=== PATIENT | female | born 1970 | race Caucasian/White ===

== ENCOUNTER 2016-11-07 17:49 | Emergency (ER) | payer OTHER ==
[2016-11-07 17:15] LABS: BASOPHILS 0.2 %; BASOPHILS ABSOLUTE 0.02 10/3/uL (0.0-0.16); EOSINOPHILS 1.4 %; EOSINOPHILS ABSOLUTE 0.15 10/3/uL (0.0-0.53); ER CBC TAT 0 Hrs 05 Mins; HEMATOCRIT 41.6 % (36.0-48.0); HEMOGLOBIN 13.7 g/dL (12.0-16.0); IMMATURE GRANULOCYTES 1.1 %; IMMATURE GRANULOCYTES ABSOLUTE 0.11 10/3/uL (0.0-0.11); LYMPHOCYTES 23.9 %; LYMPHOCYTES ABSOLUTE 2.49 10/3/uL (0.67-4.30); MEAN CORPUS HGB CONC 32.9 g/dL (32.0-36.0); MEAN CORPUSCULAR HEMOGLOB 29.3 pg (26.0-34.0); MEAN CORPUSCULAR VOLUME 89.1 fL (80-100); MEAN PLATELET VOLUME 11.2 fL (9.2-13.0); MONOCYTES 6.8 %; MONOCYTES ABSOLUTE 0.71 10/3/uL (0.21-1.20); NEUTROPHILS 66.6 %; NEUTROPHILS ABSOLUTE 6.96 10/3/uL (2.02-8.40); PLATELET COUNT 185 10/3/uL (150-400); RBC DISTRIBUTION WIDTH 14.2 % (12.0-16.0); RED CELL COUNT 4.67 10/6/uL (4.0-5.6); WHITE BLOOD CELLS 10.4 10/3/uL (4.5-10.5)
[2016-11-07 17:18] LABS: MANUAL DIFF NO %
[2016-11-07 17:31] LABS: A/G RATIO 0.8 (0.7-1.9); ALBUMIN 3.1 G/DL (3.5-5.0); ALKALINE PHOSPHATASE 77 U/L (45-117); BUN (BLOOD UREA NITROGEN) 14 MG/DL (6-23); CHLORIDE, SERUM 104 MMOL/L (96-112); CO2 (CARBON DIOXIDE) 27 MMOL/L (24-34); CREATININE 0.68 MG/DL (0.55-1.02); GFR AFRICAN AMERICAN 121 ML/MIN (>=60); GFR NON AFRICAN AMERICAN 104 ML/MIN (>=60); GLOBULIN 3.9 G/DL (2.5-4.1); GLUCOSE, SERUM 85 MG/DL (60-99); POTASSIUM, SERUM 3.9 MMOL/L (3.5-5.3); SGOT(AST) 23 U/L (5-40); SGPT(ALT) 32 U/L (5-65); SODIUM, SERUM 139 MMOL/L (135-148); TOTAL BILIRUBIN 0.5 MG/DL (0-1.2)
[2016-11-07 18:17] LABS: INTERNATIONAL NORMAL RATI 1.1 UNITS (-); PARTIAL THROMBO TIME 29.2 SEC (22.5-37.2); PROTIME (NOT ORD) 14.3 SEC (12.0-14.5)
[2016-12-10] MEDS ORDERED: NORCO1 TA2 PO (13:11)
[2016-12-10] MEDS ORDERED: NYS500UDL PO (13:12)
[2016-12-11] MEDS ORDERED: METHATAB40 PO (07:21)
== END 2016-11-07 23:51 | disposition home or self-care (01) ==
LOC: ER 17:49
PROVIDERS: Emergency Medicine; Physician Assistant
DX: K94.21 Gastrostomy hemorrhage (principal); Z85.89 Personal history of malignant neoplasm of other organs and systems
CPT/HCPCS: 43761; 76000; 80053; 85025; 85610; 85730; 99283

== ENCOUNTER 2016-11-09 09:48 | Inpatient (IN) | payer OTHER ==
--- NOTE | ~2016-11-09 | CN ---
Consultation Report [facility] [address] [place]. [address] NAME: BRYN VALDEZ : 66 STATUS : ADM IN PAT#: [id number] AGE: 46 ADM/REG DATE : 11/10/16 MR#: [id number] REPORT SERV DATE: 11/13/16 DICTATED BY: ANUJA GONZALEZ DATE: 11/12/16 REPORT STATUS : Draft TRANSCRIBED BY: MODRuthie DATE: 11/12/16 DATE OF CONSULTATION: HISTORY OF PRESENT ILLNESS: Ms. Valdez is a 46-year-old white female, who recently presented with progressive throat pain, dysphagia, hoarseness, and then what later became airway obstruction. She underwent an emergency tracheostomy by Dr. García in [place]. At that time, the supraglottic larynx was replaced by a large tumor mass. Biopsy was performed, which revealed moderately to well-differentiated squamous cell carcinoma. At that time. The patient also had a PEG tube placed and a port. A PET scan was performed on 11/03/2016, which revealed a 2.5 x 2 x 3 cm mass in the right supraglottic larynx that extended from the base of the epiglottis along the piriform sinus to the level of the false vocal cord. The lesion also extended into parapharyngeal soft tissues. The only lymph node was a 5 mm level-2 lymph node with a mild SUV level of 3.4. Ms. Valdez has been referred for definitive chemo and radiation. She is seeing Dr. Monteiro in consultation. She is referred to Radiation Oncology with hopes of being underway with treatment by 11/18/2016. MEDICATIONS: Reviewed and recorded. ALLERGIES: NO KNOWN DRUG ALLERGIES. PAST MEDICAL/SURGICAL HISTORY: Significant for COPD, GERD, hypertension, degenerative arthritis, chronic pain syndrome, chronic tobacco abuse, obesity, and EKG changes. She is status post two C-sections and bunion surgery. She has no prior history of radiation therapy or chemotherapy. FAMILY HISTORY: Unremarkable for an aunt with "bone cancer." The primary site is not known. SOCIAL HISTORY: The patient is currently , though her is very attentive. The patient smoked two packs a day up until the time of her tracheostomy. She does not abuse alcohol. REVIEW OF SYSTEMS: A comprehensive review of systems is performed, which is negative except as mentioned in the new patient questionnaire. PHYSICAL FINDINGS: GENERAL: Reveals an obese, middle-aged white female with a tracheostomy tube in place. VITAL SIGNS: Weight 290, height 5 feet 4 inches, temp 98.5, heart rate 79, respiratory rate 20, and O2 saturation 93%. ENT: Examination of oral cavity and oropharynx reveals the patient to be edentulous. NECK: There is no cervical or supraclavicular lymphadenopathy. CHEST: The left-sided Port-A-Cath is noted. ABDOMEN: The feeding jejunostomy tube is noted. There is excessive drainage around the tube. EXTREMITIES: Without cyanosis or clubbing. Her digits are nicotine-stained. Consultation Report [place] [id number] [facility] [place]. [address] NAME: BRYN VALDEZ : 66 STATUS : ADM IN [facility]#: [id number] AGE: 46 ADM/REG DATE : 11/10/16 MR#: [id number] REPORT SERV DATE: 11/13/16 DICTATED BY: ANUJA GONZALEZ DATE: 11/12/16 REPORT STATUS : Draft TRANSCRIBED BY: SHARON DATE: 11/12/16 PSYCHIATRIC: Alert and oriented x3. NEUROLOGIC: Grossly intact. PROCEDURE NOTE: The rigid Lamar john were introduced into the posterior oropharynx. The larynx is replaced by a large exophytic tumor, which overshadows the airway. Vocal cords could not be seen. The tumor extends from the base of tongue anteriorly to the anterior portion of the larynx anteriorly. The bulk of the tumor is on the right. X-RAYS: Recent PET scan was personally reviewed by me. 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 RECOMMENDATIONS: I have requested that the p16 status be performed on the biopsy material from the larynx. This might be an HPV-positive base of tongue cancer, which would change the cervical lymphatics at risk for metastases. For the time being, we will consider this a supraglottic cancer and I recommended 7000 cGy in 35 fractions using IMRT and daily image guidance. Chemotherapy will consist of weekly carboplatin and Taxol under Dr. Monteiro's care. Ms. Valdez will return tomorrow for CT simulation with IV contrast. I should be ready to begin treatment on 11/18/2016 to coincide with her first dose of chemotherapy. INFORMED CONSENT: The benefits, rationale, and possible complications of proposed treatment were discussed with the patient. The most likely side effects of generalized fatigue and erythematous skin changes along with mucositis were mentioned as well as the worst side effect of a radiation myelitis or laryngeal necrosis. Ms. Valdez consents to treatment as described. GEENA/MODL Anuja Gonzalez M.D. / [id number] CC: Tito Garcia SALLY ANN Mark S Womack IV, M.D. ALBERT CLA[place], MD ESTON WENGER, MD
--- NOTE | ~2016-11-09 | HP ---
History And Physical [place] [id number] [facility] [place]. [address] NAME: BRYN WEN : 66 STATUS : ADM IN [facility]#: [id number] AGE: 45 ADM/REG DATE : 11/10/16 MR#: [id number] REPORT SERV DATE: 11/10/16 DICTATED BY: ANGELO COOPER DATE: 11/10/16 REPORT STATUS : Draft TRANSCRIBED BY: MODL DATE: 11/10/16 DATE OF ADMISSION: 11/10/2016 CHIEF COMPLAINT: Malfunctioning PEG tube. HISTORY OF PRESENT ILLNESS: The patient is a 45-year-old white female who has presented to Dr. Gonzalez' office for outpatient radiation therapy and evaluation. Apparently, she had a malfunctioning PEG tube with leakage of gastric contents around the tube and irritation around the stoma going on for several weeks. In late October is when she received her PEG tube up in [place], [place] and after that she had more complication of the leakage of the tube, so she went to the emergency room where Interventional Radiology changed the tube out, and since then, it was doing well. She went to visit the surgeon again and they tightened the tube and then it started leaking around the stoma again. When she came today, her radiation could not be started because she needed to be on appropriate nutrition and her tube was malfunctioning, so Dr. Gonzalez decided that she needed to be admitted for further evaluation by Surgery and then proceed with radiation once a way of nutrition is established. When I talked to the patient, this patient denied any chest pain, shortness of breath. She has had some nausea, but no vomiting. She has a constant burning pain around the site of the PEG tube. There is leakage around the PEG tube. She has not lost much weight. She has had normal bowel function. The rest of the 10-point review of systems were negative. PAST MEDICAL HISTORY: Significant and extensive for obstructive sleep apnea, obesity, gastroesophageal reflux, spinal stenosis, chronic pain syndrome, chronic obstructive pulmonary disease, and dysphagia. PAST SURGICAL HISTORY: Significant for direct laryngoscopy with tracheostomy, x2, history of tonsillectomy, radical bunionectomy, and the PEG tube placement as noted above. ALLERGIES: NO KNOWN DRUG ALLERGIES. HOME MEDICATIONS: Hydrocodone, dexamethasone, Lasix, guaifenesin, methadone, potassium, Phenergan, Tussionex. SOCIAL HISTORY: This patient admits to smoking, quit about four weeks ago, smoked almost one and a half to two packs per day for 30+ years. No use of alcohol or illicit substances. FAMILY HISTORY: Significant for skin cancer in the aunt, but otherwise, no history of cancer in the family. Mother of heart failure. Father of an unknown cause. PHYSICAL EXAMINATION: GENERAL: Obese white female, lying on a gurney, appears to be in no obvious respiratory distress. She is awake, alert. She is oriented. VITAL SIGNS: Will be reviewed when available from nursing staff. HEENT: Head is normocephalic, atraumatic. Pupils are equal, round, and reactive to light. Extraocular muscles are intact. Sclerae anicteric. Conjunctivae normal. Oropharynx History And Physical [address] [address] NAME: BRYN WEN : 66 STATUS : ADM IN [facility]#: [id number] AGE: 45 ADM/REG DATE : 11/10/16 MR#: [id number] REPORT SERV DATE: 11/10/16 DICTATED BY: ANGELO COPOER DATE: 11/10/16 REPORT STATUS : Draft TRANSCRIBED BY: MODRuthie DATE: 11/10/16 without lesion. Tongue protrudes in midline. Uvula midline. NECK: Supple. No jugular venous distention. No carotid bruits or thyromegaly is appreciated. Tracheostomy is in place. There is some mucus production through the tracheostomy. HEART: Regular rate and rhythm. No murmurs, rubs, or gallops are heard. PMI is nondisplaced. LUNGS: Clear to auscultation anteriorly and posteriorly. ABDOMEN: Obese, soft, nontender, good bowel sounds. There is a PEG tube in place with a leakage of what appears to be gastric contents. There is significant erythema around the site with excoriations and some reaction to the tape. EXTREMITIES: Without cyanosis or clubbing. There is 2+ to 3+ pitting edema bilaterally, which patient has suffered over the last few years. NEUROLOGIC: Cranial nerves 2 through 12 are normal. Strength is equal and symmetrical. Deep tendon reflexes are present. LABS: Most recent echo report, normal left ventricular cavity size with mild concentric left ventricular hypertrophy, ejection fraction is about 60%. Stage I diastolic dysfunction. Aortic valve not well visualized. No hemodynamic significant aortic stenosis. By Doppler interrogation, there is trivial to mild aortic valve regurgitation. Pericardium appears normal with no significant pericardial effusions. PET-CT, right supraglottic larynx, 2.5 x 2 x 3 cm mass that extends from the base of the epiglottis along the piriformis sinus to the level of the false cords. The lesion extends into the parapharyngeal left soft tissues. There is a 5 mm level 2 lymph node in the right neck adjacent to the piriformis sinus that is suspicious for metastatic disease. No enlarged or necrotic lymph nodes are present. A Gastrografin check of the PEG tube on 11/07/2016 showed PEG tube in good place. No other lab work is available. IMPRESSION: 1. Malfunctioning G-tube. 2. Advanced laryngeal cancer. 3. Chronic obstructive pulmonary disease. 4. Obstructive sleep apnea. 5. Spinal stenosis. 6. Chronic pain syndrome. 7. Dysphagia due to advanced laryngeal cancer. 8. Peripheral edema. PLAN: The patient will be admitted. IV fluids will be given. IV Ancef will be started. Wound care will be asked to see the patient for wound care around the PEG site. General surgery consultation by Dr. Ren Olmstead will be obtained to see if there was a surgical need to replace the PEG tube or if it could be changed through other less invasive means. Home medications will be addressed when available from pharmacy. The patient remains a full code. SV/MODL History And Physical [address] [address] NAME: BRYN WEN : 66 STATUS : ADM IN [facility]#: [id number] AGE: 45 ADM/REG DATE : 11/10/16 MR#: [id number] REPORT SERV DATE: 11/10/16 DICTATED BY: ANGELO COOPER DATE: 11/10/16 REPORT STATUS : Draft TRANSCRIBED BY: SHARON DATE: 11/10/16 Angelo Cooper M.D. / [id number] CC: Tito Yepez SALLY ANN Mark S Womack IV, M.D.
--- NOTE | ~2016-11-09 | DS ---
Discharge Summary [facility] [address] [place]. [address] NAME: BRYN WEN : 66 STATUS : DIS IN PAT#: [id number] AGE: 46 ADM/REG DATE : 11/10/16 MR#: [id number] REPORT SERV DATE: 11/13/16 DICTATED BY: ANGELO COOPER DATE: 11/13/16 REPORT STATUS : Draft TRANSCRIBED BY: MODL DATE: 11/13/16 ADMISSION DATE: 11/10/2016 DISCHARGE DATE: 11/13/2016 DISCHARGE DIAGNOSES: 1. Malfunctioning of the PEG tube. 2. Mild cellulitis of the PEG tube stoma. 3. Constipation, now resolved. 4. Laryngeal cancer. 5. Spinal stenosis. 6. Chronic pain syndrome. 7. Chronic obstructive pulmonary disease. 8. Gastroesophageal reflux. CONSULTANTS DURING THIS HOSPITALIZATION: Dr. Ren Olmstead of General Surgery. INVASIVE PROCEDURES DONE DURING THIS HOSPITALIZATION: None. BRIEF HISTORY OF PRESENT ILLNESS: The patient is a 46-year-old female with an unfortunate diagnosis of laryngeal cancer presented with a malfunctioning G-tube, so she was admitted. For detailed history and physical exam, please see my note dictated on 11/10/2016. HOSPITAL COURSE: After being admitted to the hospital, this patient was kept initially n.p.o. General Surgery, Dr. Ren Olmstead saw the patient in consultation. He thought that the tube was in good place and there was no need to change the tube, and we just needed to manipulate the tube to a point where the stoma would not leak. This was done through Radiology, first placement was ensured and then Dr. Olmstead actually put a binding suture around the tube to keep it in place. Tube feeds were started and on a continuous tube feed, she had no leakage. Then, we tried bolus feed, and on a bolus feed, there was no leakage as well. The patient was doing well. She felt well enough that she could be discharged home and follow up in the outpatient setting. DISCHARGE DISPOSITION: Home. DISCHARGE ACTIVITY: As tolerated. DISCHARGE DIET: Low sodium diet. DISCHARGE MEDICATIONS: Hydrochlorothiazide 12.5 mg once daily, nicotine patch as directed, Prilosec 20 mg once daily, cetirizine 10 mg once daily, Phenergan 25 mg twice daily, Tussionex 5 mL p.o. twice daily. DISCHARGE FOLLOWUP: With Dr. Poncho Gonzalez for radiation therapy with Dr. Estefani Mooney as directed and with Dr. Isaiah Monteiro IV as scheduled previously. More than 30 minutes spent planning this patient's discharge, reconciling medications, Discharge Summary [address] [address] NAME: BRYN WEN : 66 STATUS : DIS IN PAT#: [id number] AGE: 46 ADM/REG DATE : 11/10/16 MR#: [id number] REPORT SERV DATE: 11/13/16 DICTATED BY: ANGELO COOPER DATE: 11/13/16 REPORT STATUS : Draft TRANSCRIBED BY: MODL DATE: 11/13/16 discussing hospital care and followup with the patient, and documenting this discharge. DICTATED BY: Tito Garcia/SHARON Angelo Cooper M.D. / [id number] CC: Tito Garcia SALLY ANN Eric Ellis, M.D. Mark S Womack IV, M.D.
[2016-11-10 17:12] LABS: BASOPHILS 0.3 %; BASOPHILS ABSOLUTE 0.02 10/3/uL (0.0-0.16); EOSINOPHILS ABSOLUTE 0.12 10/3/uL (0.0-0.53); HEMATOCRIT 42.5 % (36.0-48.0); IMMATURE GRANULOCYTES 0.7 %; IMMATURE GRANULOCYTES ABSOLUTE 0.04 10/3/uL (0.0-0.11); LYMPHOCYTES 32.4 %; LYMPHOCYTES ABSOLUTE 1.94 10/3/uL (0.67-4.30); MEAN CORPUS HGB CONC 32.9 g/dL (32.0-36.0); MEAN CORPUSCULAR HEMOGLOB 29.2 pg (26.0-34.0); MEAN CORPUSCULAR VOLUME 88.7 fL (80-100); MEAN PLATELET VOLUME 11.1 fL (9.2-13.0); MONOCYTES ABSOLUTE 0.54 10/3/uL (0.21-1.20); NEUTROPHILS 55.6 %; NEUTROPHILS ABSOLUTE 3.32 10/3/uL (2.02-8.40); PLATELET COUNT 174 10/3/uL (150-400); RBC DISTRIBUTION WIDTH 13.8 % (12.0-16.0); RED CELL COUNT 4.79 10/6/uL (4.0-5.6)
[2016-11-10 17:13] LABS: MANUAL DIFF NO %
[2016-11-10 17:18] LABS: INTERNATIONAL NORMAL RATI 1.3 UNITS (-); PARTIAL THROMBO TIME 33.1 SEC (22.5-37.2); PROTIME (NOT ORD) 15.8 SEC (12.0-14.5)
[2016-11-10 17:28] LABS: A/G RATIO 0.8 (0.7-1.9); ALBUMIN 2.9 G/DL (3.5-5.0); ALKALINE PHOSPHATASE 77 U/L (45-117); CALCIUM, SERUM 9.2 MG/DL (8.5-10.4); CHLORIDE, SERUM 101 MMOL/L (96-112); GFR AFRICAN AMERICAN 120 ML/MIN (>=60); GFR NON AFRICAN AMERICAN 103 ML/MIN (>=60); GLOBULIN 3.8 G/DL (2.5-4.1); GLUCOSE, SERUM 81 MG/DL (60-99); POTASSIUM, SERUM 3.5 MMOL/L (3.5-5.3); SGOT(AST) 34 U/L (5-40); SGPT(ALT) 41 U/L (5-65); SODIUM, SERUM 138 MMOL/L (135-148); TOTAL BILIRUBIN 0.7 MG/DL (0-1.2); TOTAL PROTEIN 6.7 G/DL (6.0-8.5)
[2016-11-10 17:29] LABS: BUN (BLOOD UREA NITROGEN) 10 MG/DL (6-23); CO2 (CARBON DIOXIDE) 32 MMOL/L (24-34)
[2016-11-10 19:48] LABS: PROCALCITONIN 0.08 ng/mL (<0.5)
[2016-11-10] MEDS ORDERED: ZYRTEC ALLGY10 MG PO (22:43)
[2016-11-10] MEDS ORDERED: *UNABLE1 (22:44)
[2016-11-11 03:49] LABS: BASOPHILS 0.2 %; BASOPHILS ABSOLUTE 0.01 10/3/uL (0.0-0.16); EOSINOPHILS 2.8 %; EOSINOPHILS ABSOLUTE 0.16 10/3/uL (0.0-0.53); HEMOGLOBIN 12.5 g/dL (12.0-16.0); IMMATURE GRANULOCYTES 0.5 %; IMMATURE GRANULOCYTES ABSOLUTE 0.03 10/3/uL (0.0-0.11); LYMPHOCYTES ABSOLUTE 1.69 10/3/uL (0.67-4.30); MEAN CORPUS HGB CONC 32.8 g/dL (32.0-36.0); MEAN CORPUSCULAR HEMOGLOB 29.3 pg (26.0-34.0); MEAN CORPUSCULAR VOLUME 89.2 fL (80-100); MONOCYTES 10.6 %; NEUTROPHILS 55.9 %; NEUTROPHILS ABSOLUTE 3.15 10/3/uL (2.02-8.40); PLATELET COUNT 172 10/3/uL (150-400); RED CELL COUNT 4.27 10/6/uL (4.0-5.6); WHITE BLOOD CELLS 5.6 10/3/uL (4.5-10.5)
[2016-11-11 03:51] LABS: HEMATOCRIT 38.1 % (36.0-48.0); MANUAL DIFF NO %
[2016-11-11 04:02] LABS: ALBUMIN 2.6 G/DL (3.5-5.0); BUN (BLOOD UREA NITROGEN) 9 MG/DL (6-23); CALCIUM, SERUM 8.7 MG/DL (8.5-10.4); CHLORIDE, SERUM 103 MMOL/L (96-112); CO2 (CARBON DIOXIDE) 32 MMOL/L (24-34); CREATININE 0.67 MG/DL (0.55-1.02); GFR AFRICAN AMERICAN 120 ML/MIN (>=60); GFR NON AFRICAN AMERICAN 104 ML/MIN (>=60); GLUCOSE, SERUM 86 MG/DL (60-99); PHOSPHORUS, SERUM 3.3 MG/DL (2.5-4.5); POTASSIUM, SERUM 3.7 MMOL/L (3.5-5.3); SODIUM, SERUM 138 MMOL/L (135-148)
[2016-11-11] MEDS ORDERED: HYDROCHLOROT12.5 MG PO (09:39)
[2016-11-11] MEDS ORDERED: HABIT14 TOP (09:39)
[2016-11-11] MEDS ORDERED: PRILO PO (09:39)
[2016-11-11] MEDS ORDERED: TUSSINEX PO (09:40)
[2016-11-11] MEDS ORDERED: PR25 PO (09:40)
[2016-11-12 04:46] LABS: BASOPHILS 0 %; EOSINOPHILS 3.7 %; EOSINOPHILS ABSOLUTE 0.13 10/3/uL (0.0-0.53); HEMATOCRIT 36.4 % (36.0-48.0); HEMOGLOBIN 11.9 g/dL (12.0-16.0); IMMATURE GRANULOCYTES 0.6 %; IMMATURE GRANULOCYTES ABSOLUTE 0.02 10/3/uL (0.0-0.11); LYMPHOCYTES 35.7 %; LYMPHOCYTES ABSOLUTE 1.26 10/3/uL (0.67-4.30); MEAN CORPUS HGB CONC 32.7 g/dL (32.0-36.0); MEAN CORPUSCULAR HEMOGLOB 29.4 pg (26.0-34.0); MEAN CORPUSCULAR VOLUME 89.9 fL (80-100); MEAN PLATELET VOLUME 11.3 fL (9.2-13.0); MONOCYTES 9.3 %; MONOCYTES ABSOLUTE 0.33 10/3/uL (0.21-1.20); NEUTROPHILS 50.7 %; NEUTROPHILS ABSOLUTE 1.79 10/3/uL (2.02-8.40); PLATELET COUNT 162 10/3/uL (150-400); RBC DISTRIBUTION WIDTH 14.2 % (12.0-16.0); RED CELL COUNT 4.05 10/6/uL (4.0-5.6); WHITE BLOOD CELLS 3.5 10/3/uL (4.5-10.5)
[2016-11-12 04:47] LABS: MANUAL DIFF NO %
[2016-11-12 05:03] LABS: ALBUMIN 2.5 G/DL (3.5-5.0); BUN (BLOOD UREA NITROGEN) 8 MG/DL (6-23); CALCIUM, SERUM 8.2 MG/DL (8.5-10.4); CHLORIDE, SERUM 104 MMOL/L (96-112); CO2 (CARBON DIOXIDE) 31 MMOL/L (24-34); CREATININE 0.59 MG/DL (0.55-1.02); GFR AFRICAN AMERICAN 126 ML/MIN (>=60); GFR NON AFRICAN AMERICAN 108 ML/MIN (>=60); PHOSPHORUS, SERUM 3.8 MG/DL (2.5-4.5); POTASSIUM, SERUM 3.3 MMOL/L (3.5-5.3); SODIUM, SERUM 139 MMOL/L (135-148)
[2016-11-12 05:07] LABS: GLUCOSE, SERUM 115 MG/DL (60-99)
[2016-11-13 03:57] LABS: BASOPHILS 0.2 %; BASOPHILS ABSOLUTE 0.01 10/3/uL (0.0-0.16); EOSINOPHILS 3.4 %; EOSINOPHILS ABSOLUTE 0.15 10/3/uL (0.0-0.53); HEMOGLOBIN 12.3 g/dL (12.0-16.0); IMMATURE GRANULOCYTES 0.5 %; IMMATURE GRANULOCYTES ABSOLUTE 0.02 10/3/uL (0.0-0.11); LYMPHOCYTES ABSOLUTE 1.72 10/3/uL (0.67-4.30); MEAN CORPUS HGB CONC 33.2 g/dL (32.0-36.0); MEAN CORPUSCULAR HEMOGLOB 29.4 pg (26.0-34.0); MEAN CORPUSCULAR VOLUME 88.3 fL (80-100); MEAN PLATELET VOLUME 10.7 fL (9.2-13.0); MONOCYTES 10.9 %; MONOCYTES ABSOLUTE 0.48 10/3/uL (0.21-1.20); NEUTROPHILS ABSOLUTE 2.03 10/3/uL (2.02-8.40); PLATELET COUNT 157 10/3/uL (150-400); RBC DISTRIBUTION WIDTH 13.9 % (12.0-16.0); RED CELL COUNT 4.19 10/6/uL (4.0-5.6); WHITE BLOOD CELLS 4.4 10/3/uL (4.5-10.5)
[2016-11-13 04:02] LABS: MANUAL DIFF NO %
[2016-11-13 04:31] LABS: ALBUMIN 2.6 G/DL (3.5-5.0); BUN (BLOOD UREA NITROGEN) 6 MG/DL (6-23); CALCIUM, SERUM 8.9 MG/DL (8.5-10.4); CHLORIDE, SERUM 102 MMOL/L (96-112); CO2 (CARBON DIOXIDE) 31 MMOL/L (24-34); CREATININE 0.48 MG/DL (0.55-1.02); GFR AFRICAN AMERICAN 134 ML/MIN (>=60); GFR NON AFRICAN AMERICAN 116 ML/MIN (>=60); PHOSPHORUS, SERUM 3.9 MG/DL (2.5-4.5); POTASSIUM, SERUM 3.3 MMOL/L (3.5-5.3); SODIUM, SERUM 140 MMOL/L (135-148)
[2016-11-13 04:33] LABS: GLUCOSE, SERUM 83 MG/DL (60-99)
[2016-12-10] MEDS ORDERED: NORCO1 TA2 PO (13:11)
[2016-12-10] MEDS ORDERED: NYS500UDL PO (13:12)
[2016-12-11] MEDS ORDERED: METHATAB40 PO (07:21)
== END 2016-11-13 12:59 | disposition home or self-care (01) | DRG 395 ==
LOC: CC 09:48 → 4EA 11-10 15:14
PROVIDERS: Internal Medicine
PROC: 0DW6XUZ Revision of Feeding Device in Stomach, External Approach (ICD-10-PCS; principal; 2016-11-11)
DX: K94.23 Gastrostomy malfunction (principal); C32.9 Malignant neoplasm of larynx, unspecified; J44.9 Chronic obstructive pulmonary disease, unspecified; G47.33 Obstructive sleep apnea (adult) (pediatric); G89.4 Chronic pain syndrome; K21.9 Gastro-esophageal reflux disease without esophagitis
CPT/HCPCS: 49450; 49465; 74020; 77300; 77301; 77334; 77338; 80053; 80069; 83605; 83735; 84100; 84145; 85025; 85610; 85730; 94640; A9270-GY; C1769; G0463; J0690; J1170; J2250; J2405; J3010; Q9967